=== PATIENT | male | born 1950 | race Hispanic/Latino ===

== ENCOUNTER 2021-01-23 08:30 | Day surgery (SDC) | payer OTHER ==
[2021-01-23] MEDS ORDERED: Ringers Lactate 1,000 ML IV ONE (09:10)
[2021-01-23] MEDS ORDERED: CEFAZOLIN/SWI 1gm 1 GM/10 ML SYR ONE (09:10)
[2021-01-23] MEDS ORDERED: MIDAZOLAM HCL 2 MG/2 ML INJ ONE (09:55)
[2021-01-23] MEDS ORDERED: LIDOCAINE 1% MPF 5 ML VIAL ONE (09:55)
[2021-01-23] MEDS ORDERED: FENTANYL CITR 100 MCG/2 ML ONE (09:55)
[2021-01-23] MEDS ORDERED: propofoL 200 MG/20 ML VIAL IV ONE (09:55)
[2021-01-23] MEDS ORDERED: dexAMETHasone 10 MG/ML VIAL ONE (09:55)
[2021-01-23 12:22] VITALS: TEMP 97; O2SAT 99
[2021-01-23] MEDS ORDERED: HYDROCODONE/APAP 7.5/325 MG TAB ONE (12:46)
[2021-01-23 13:29] VITALS: BP 130/60
--- NOTE | 2021-01-23 14:08 | OP ---
Date of Procedure: 01/23/2021 Surgeon: Corey Ortiz MD Engineering Specialist: SHEELA Haile. Preoperative Diagnosis: Inflamed mass, back. Postoperative Diagnosis: Inflamed mass, back. Procedure: Wide excision of back mass 6 x 3 cm with layered closure. Estimated Blood Loss: Minimal. Specimen: Culture and sensitivity of the cyst contents. Finding: As above. Anesthesia: General. Complications: None. Drains: Quarter-inch Diamond. Disposition: The patient tolerated the procedure in stable condition, taken to Recovery in good gene ral condition. Procedure In Detail: The patient was brought to the OR and placed in supine position. General anest hesia begun. The patient was placed in the right lateral position, prepped and draped in usual steri le fashion. Marcaine 0.5% infiltrated locally. A 15 blade was used to make a 6 x 3 cm incision in t he entire cyst and contents excised. There was fluid inside the cyst. Cultures were done and sent t o Pathology as specimen. Wound irrigated. Bleeding controlled with cautery. Flaps created. Penros e drain quarter-inch placed and secured with a 3-0 nylon and then 0 chromic was used to approximate t he subcutaneous tissue, and 2-0 nylon used to close the skin. Sterile dressing was applied. The pat ient was awakened and taken to Recovery in good general condition. Discharge Note: The patient will go to Day Surgery and home when stable. Disposition: Home. Condition: Stable. Discharge Instructions: Resume home medications and diet. Activity as tolerated. No heavy lifting. May shower in the a.m. Change dressing with dry gauze daily. Bactrim DS 1 tablet p.o. q.12 and Ty lenol No.3 one tablet p.o. q.4 p.r.n. pain. /MODL Voice ID: [id number] Report ID: [id number]
== END 2021-01-23 13:20 | disposition home or self-care (01) ==
LOC: OR 08:30
PROVIDERS: ATTEND Surgery
PROC: 0JB70ZZ Excision of Back Subcutaneous Tissue and Fascia, Open Approach (ICD-10-PCS; principal; 2021-01-23 10:00)
DX: L72.0 Epidermal cyst (principal)
CPT/HCPCS: 11406; 87070; 87205; 88304; 87075; J2704; J2250; J3010; J1100; J0690; J7120; 88305

== ENCOUNTER 2021-03-13 06:31 | Day surgery (SDC) | payer OTHER ==
[2021-03-11 10:40] LABS: Absolute Lymphocytes (CBC) 0.9 K/uL (0.7-4.9); Basophils % 0.7 % (0-1.3); Hematocrit 36.6 % (39.6-49.0); Lymphocytes % 18.4 % (15.3-44.8); MPV 7.5 fL (7.6-11.3); RBC Red Blood Cell Count 4.82 M/uL (4.33-5.43)
[2021-03-11 11:00] LABS: Protime INR 1.04
[2021-03-11 11:04] LABS: Potassium 4.2 mmol/L (3.5-5.1)
--- NOTE | 2021-03-12 08:45 | EKG ---
Test Date: 2021-03-11 Test Time: 09:14:44 Supervisor Publications: TG MEASUREMENT RESULTS: Intervals: Rate: 66 UT: 162 QRSD: 92 QT: 368 QTc: 385 [place]: P: 53 UT: 162 QRS: 71 T: 124 INTERPRETIVE STATEMENTS: Normal sinus rhythm Anterior infarct, age undetermined Abnormal ECG Compared to ECG 05/24/2017 13:23:14 T-wave abnormality no longer present Possible ischemia no longer present Myocardial infarct finding still present Electronically Signed On 03-12-21 08:41:48 CDT by Max Bush
[2021-03-13] MEDS ORDERED: LIDOCAINE 1% 20 ML MDV ONE (07:03)
[2021-03-13] MEDS ORDERED: HEPA 1000U/500MLS 1,000 UNIT/500 ML BAG IV ONE (07:03)
[2021-03-13] MEDS ORDERED: ATROPINE SULF 1 MG/10 ML SYR IV ONE (07:07)
[2021-03-13] MEDS ORDERED: NA CHLORIDE 0.9% 0 ML ONE (07:07)
[2021-03-13] MEDS ORDERED: FENTANYL CITR 100 MCG/2 ML ONE (07:07)
[2021-03-13] MEDS ORDERED: MIDAZOLAM HCL 2 MG/2 ML INJ ONE ×2 (07:07→07:52)
[2021-03-13] MEDS ORDERED: NA CHLORIDE 0.9% 500 ML ONE (07:08)
[2021-03-13 07:11] VITALS: TEMP 97
[2021-03-13 09:10] VITALS: O2SAT 100
[2021-03-13 09:39] VITALS: BP 138/78
--- NOTE | 2021-03-13 12:37 | OP ---
Surgeon: Max Bush MD Candy Spreader Helper: Dr. stas Herzog. Reason For Admission: Selective bilateral carotid angiograms. Indication: Cerebrovascular disease. History Of Present Illness: Mr. Lazo is 70. Has a history of CABG, CAD, hypertension, dyslipid emia with recently found abnormal carotid Doppler, worse on the left than the right, admitted for car otid angiogram. Procedure In Detail: He was brought to the car barn laborer, prepped and draped in routine sterile fashion. Given Versed and fentanyl for sedation. A 6-Vietnamese sheath introduced in the right common femoral ar ivelisse successfully. 10 mL of Xylocaine were used. We used the Seldinger technique. A JR4 catheter w as used initially to cannulate the right common carotid. Angiography there showed a 30% ICA, 70% ext ernal carotid, normal common carotid. I attempted to cannulate the left carotid with JR4, but that w as unsuccessful. I switched to a 3DRC and used a Glidewire to guide the catheter into the left commo n carotid. Angiography there showed 50% left ICA, normal external carotid and common carotid. No co mplications. Blood Loss: 5 mL. Postoperative Diagnosis: Moderate CVD. Medical therapy is planned. I will increase his statin to 40 mg daily. Anesthesia: Total conscious sedation 45 minutes. Angio-Seal was used to close the groin site. The patient will remain at bedrest for 2 hours and he w ill go home and see me in the office in 2 weeks. DMITRI/DOC Voice ID: [id number] Report ID: [id number]
== END 2021-03-13 10:00 | disposition home or self-care (01) ==
LOC: CCL 06:31
DX: I65.23 Occlusion and stenosis of bilateral carotid arteries (principal); I25.10 Atherosclerotic heart disease of native coronary artery without angina pectoris; I10 Essential (primary) hypertension; I34.0 Nonrheumatic mitral (valve) insufficiency; G62.9 Polyneuropathy, unspecified; E78.2 Mixed hyperlipidemia; F41.1 Generalized anxiety disorder; Z95.1 Presence of aortocoronary bypass graft; Z88.2 Allergy status to sulfonamides; Z88.8 Allergy status to other drugs, medicaments and biological substances; Z20.822 Contact with and (suspected) exposure to COVID-19
CPT/HCPCS: 93005; 85025; 80048; 36415; 85610; 85730; 36222; U0003; C1893; C1760; J2250 ×2; J3010; J7040; J1644; J0583

== ENCOUNTER 2025-02-25 14:17 | Emergency (ER) | payer OTHER ==
[2025-02-25] MEDS ORDERED: LIDOCAINE 2% W/EPI 1:200,000 MPF 20 ML VIAL IM ONE (14:29)
[2025-02-25] MEDS ORDERED: LIDOCAINE 1% MPF 5 ML VIAL ONE (14:36)
[2025-02-25] MEDS ORDERED: TDAP (DIPHTH,PERTUSS(ACELL),TET VAC) 0.5 ML VIAL IMVAC ONE (14:37)
--- NOTE | 2025-02-25 15:23 | ER ---
Nurse's Notes [facility] Name: Juan Miguel Lazo Jr Age: 74 yrs Sex: Male : 1950 Arrival Date: 02/25/2025 Time: 14:17 Bed 18 Private MD: Diagnosis: Hand Laceration/ Open wound of hand Presentation: 02/25 14:27 Chief complaint: Patient states: Laceration to R palmar aspect of R hand after falling ss from standing. Pt reports he hit his hand on a corner of a piece of wood. Coronavirus screen: Client denies travel out of the [place] in the last 14 days. Ebola Screen: Patient denies exposure to infectious person. Patient denies travel to an Ebola-affected area in the 21 days before illness onset. Complicating Factors: There are no complicating factors for this patient. Initial Sepsis Screen: Does the patient meet any 2 criteria? No. Patient's initial sepsis screen is negative. Does the patient have a suspected source of infection? No. Patient's initial sepsis screen is negative. Risk Assessment: Do you want to hurt yourself or someone else? Patient reports no desire to harm self or others. Onset of symptoms was February 25, 2025. 14:27 Method Of Arrival: Ambulatory ss 14:27 Acuity: KATIUSKA 3 ss Historical: - Allergies: 14:30 ACETAMINOPHEN; ss 14:30 Heparin; ss - PMHx: 14:30 Hypertension; ss - PSHx: 14:30 neck (en); CABG (neck); ss - Immunization history:: Last tetanus immunization: not immunized. - Infectious Disease History:: Denies. - Social history:: Smoking status: Patient denies any tobacco usage or history of. Screenin:03 [facility] ED Fall Risk Assessment (Adult) History of falling in the last 3 months, ld1 including since admission No falls in past 3 months (0 pts) Confusion or Disorientation No (0 pts) Intoxicated or Sedated No (0 pts) Impaired Gait No (0 pts) Mobility Assist Device Used No (0 pt) Altered Elimination No (0 pt) Score/Fall Risk Level 0 - 2 = Low Risk Oriented to surroundings, Hourly rounding (assess needs \T\ fall precautionary measures) done. Abuse screen: Denies threats or abuse. Denies injuries from another. Nutritional screening: No deficits noted. Tuberculosis screening: No symptoms or risk factors identified. Assessment: 15:03 General: Appears in no apparent distress. comfortable, Behavior is calm, cooperative, ld1 appropriate for age. Pain: Complains of pain in palmar aspect of proximal phalanx of right thumb, heel of right hand, palm of right hand and Right first web space Pain does not radiate. Pain currently is 8 out of 10 on a pain scale. Quality of pain is described as throbbing, Pain began 1 hour ago. Is continuous. Neuro: Level of Consciousness is awake, alert, obeys commands, Oriented to person, place, time, situation. Cardiovascular: Capillary refill < 3 seconds Patient's skin is warm and dry. Respiratory: Airway is patent Respiratory effort is even, unlabored. GI: Abdomen is round non-distended. : No signs and/or symptoms were reported regarding the genitourinary system. EENT: No signs and/or symptoms were reported regarding the EENT system. Derm: No signs and/or symptoms reported regarding the dermatologic system. Musculoskeletal: No signs and/or symptoms reported regarding the musculoskeletal system. Injury Description: Laceration sustained to heel of right hand, palm of right hand and Right first web space is jagged, not bleeding, is bleeding no active bleeding noted. 15:36 Reassessment: Patient appears in no apparent distress at this time. No changes from ld1 previously documented assessment. Patient and/or family updated on plan of care and expected duration. Pain level reassessed. Patient is alert, oriented x 3, equal unlabored respirations, skin warm/dry/pink. Vital Signs: 14:27 BP 152 / 68; Pulse 78; Resp 17; Temp 98.1; Pulse Ox 98% on R/A; Weight 92.99 kg; Height ss 5 ft. 8 in. ; Pain 2/10; 15:03 BP 169 / 60; Pulse 68; Resp 18; Pulse Ox 95% on R/A; ld1 15:36 BP 159 / 65; Pulse 71; Resp 18; Pulse Ox 100% on R/A; ld1 14:27 Body Mass Index 31.17 (92.99 kg, 172.72 cm) 14:27 Pain Scale: Adult ED Course: 14:21 Patient arrived in ED. al6 14:21 Scott To FNP-C is [facility]. dr5 14:22 Phoeinx Lu MD is Attending Physician. dr5 14:30 Triage completed. ss 14:30 Arm band placed on right wrist. ss 14:31 Marlene Lopez, RN is Primary Nurse. ld1 15:03 Patient has correct armband on for positive identification. Placed in gown. Bed in low ld1 position. Call light in reach. Side rails up X2. Pulse ox on. NIBP on. Door closed. Noise minimized. Warm blanket given. 15:03 Assist provider with laceration repair on right hand using sutures. Set up tray. ld1 Performed by Scott COOMBS Patient tolerated well. 15:37 Patient did not have IV access during this emergency room visit. ld1 Administered Medications: 14:42 Drug: Boostrix Tdap IM 0.5 ml IM once; as a single dose Route: IM; Site: left deltoid; ld1 14:50 Follow up: Response: (VIS) Vaccine information sheet provided today. Questions and/or ld1 concerns addressed. VIS edition date: May 30, 2021.; No adverse reaction 14:47 Drug: Lidocaine-Epinephrine Infiltration -1%: (1:100,000) 20 ml 20 ml Infiltration ld1 once; to bedside {Note: Administered by FNP. Rachel} Volume: 20 ml; Route: Infiltration; Medication: 15:03 Vaccine Information Statement (VIS) provided today. Questions and/or concerns ld1 addressed. VIS edition date: February 25, 2025. Outcome: 15:23 Discharge ordered by MD. dr5 15:36 Discharged to home ambulatory, with family, ld1 15:36 Condition: stable 15:36 Discharge instructions given to patient, Instructed on discharge instructions, follow up and referral plans. medication usage, Demonstrated understanding of instructions, follow-up care, medications, Prescriptions given X 1, 15:37 Patient left the ED. ld1 Signatures: Noemy Cadet RN RN ss Sims, Lauren, RN RN ld1 Scott To FNP-C FNP-Cdr5 Julieta Romano6 Corrections: (The following items were deleted from the chart) 15:06 15:03 VIS not applicable for this client. ld1 ld1
--- NOTE | 2025-02-25 15:23 | EDPHYS ---
Physician Documentation [facility] Name: Juan Miguel Lazo Jr Age: 74 yrs Sex: Male : 1950 Arrival Date: 02/25/2025 Time: 14:17 Bed 18 Private MD: ED Physician Phoenix Lu HPI: 02/25 16:52 This 74 yrs old Male presents to ER via Ambulatory with complaints of dr5 Laceration To right Hand. 16:52 The patient has a laceration occurred at home. Onset: The symptoms/episode dr5 began/occurred acutely. Patient is a 74-year-old male who was at home, tripped and fell, and landed on right hand. Patient reports that there was a piece of wood at the by the desk that lacerated his right hand. Patient denies numbness or tingling in fingers, hand, or decrease in range of motion.. Historical: - Allergies: 14:30 ACETAMINOPHEN; ss 14:30 Heparin; ss - PMHx: 14:30 Hypertension; ss - PSHx: 14:30 neck (en); CABG (neck); ss - Immunization history:: Last tetanus immunization: not immunized. - Infectious Disease History:: Denies. - Social history:: Smoking status: Patient denies any tobacco usage or history of. ROS: 16:52 Constitutional: as per hpi dr5 Exam: 16:52 Constitutional: This is a well developed, well nourished patient who is awake, alert, dr5 and in no acute distress. Head/Face: Normocephalic, atraumatic. Eyes: Pupils equal round and reactive to light, extra-ocular motions intact. Lids and lashes normal. Conjunctiva and sclera are non-icteric and not injected. Cornea within normal limits. Periorbital areas with no swelling, redness, or edema. Neck: Trachea midline, no thyromegaly or masses palpated, and no cervical lymphadenopathy. Supple, full range of motion without nuchal rigidity, or vertebral point tenderness. No Meningismus. Chest/axilla: Normal chest wall appearance and motion. Nontender with no deformity. No lesions are appreciated. Cardiovascular: Regular rate and rhythm with a normal S1 and S2. Normal PMI, no JVD. No pulse deficits. Respiratory: Lungs have equal breath sounds bilaterally, clear to auscultation. No rales, rhonchi or wheezes noted. No increased work of breathing, no retractions or nasal flaring. Back: No spinal tenderness. No costovertebral tenderness. Full range of motion. MS/ Extremity: Pulses equal, no cyanosis. Neurovascular intact. Full, normal range of motion. Neuro: Awake and alert, GCS 15, oriented to person, place, time, and situation. Cranial nerves II-XII grossly intact. Motor strength 5/5 in all extremities. Sensory grossly intact. Cerebellar exam normal. Normal gait. 16:52 Musculoskeletal/extremity: Extremities: grossly normal except: noted in the outer aspect of right palm: laceration, ROM: no acute changes, intact in all extremities, Circulation is intact in all extremities. Sensation intact. 16:52 Skin: injury, laceration(s), the wound is approximately 6 cm(s), with a depth of 1 cm(s), of the outer aspect of right palm, Vital Signs: 14:27 BP 152 / 68; Pulse 78; Resp 17; Temp 98.1; Pulse Ox 98% on R/A; Weight 92.99 kg; Height ss 5 ft. 8 in. ; Pain 2/10; 15:03 BP 169 / 60; Pulse 68; Resp 18; Pulse Ox 95% on R/A; ld1 15:36 BP 159 / 65; Pulse 71; Resp 18; Pulse Ox 100% on R/A; ld1 14:27 Body Mass Index 31.17 (92.99 kg, 172.72 cm) ss 14:27 Pain Scale: Adult ss Laceration: 16:52 Wound Repair of 6cm ( 2.4in ) subcutaneous laceration to outer aspect of right palm. dr5 Irregularly shaped.. Skin/tissue flap noted.. Distal neuro/vascular/tendon intact. Anesthesia: Local anesthetic administered with 4 mls of 1% lidocaine. Wound prep: Moderate cleansing by me, Wound irrigation by me, Copious irrigation. Skin closed with 16 4-0 Prolene using simple sutures and sterile technique. Dressed with non-adherent dressing. Patient tolerated well. MDM: 14:22 Medical Screening Exam initiated dr5 16:52 Differential diagnosis: superficial laceration, tendon injury, vascular injury. Data dr5 reviewed: vital signs, nurses notes. I considered the following discharge prescriptions or medication management in the emergency department Medications were administered in the Emergency Department. See DEC. Care significantly affected by the following chronic conditions: Hypertension. Care significantly affected by the following Social Determinants of Health: Poor access to healthcare and/or lack of insurance, Poor access to transportation, Problems related to employment. Counseling: I had a detailed discussion with the patient and/or guardian regarding the historical points, exam findings, and any diagnostic results supporting the discharge/admit diagnosis, the presence of at least one elevated blood pressure reading (>120/80) during this emergency department visit, the need for outpatient follow up, for definitive care, a family practitioner, to return to the emergency department if symptoms worsen or persist or if there are any questions or concerns that arise at home. Medication response: Lidocaine. Response to treatment: the patient's symptoms have resolved after treatment. ED course: 16 stitches placed with well-approximated wound. Laceration was cut in a V manner. I originally placed horizontal mattress at point of V to hold wound together. At end of laceration repair, that was removed, and 2 simple interrupted sutures were placed for better wound approximation. Keflex prescribed. Recommended patient have sutures removed in 10 to 14 days. All questions answered. Tetanus was updated in ER today. Strict ER precautions given.. 02/25 14:26 Order name: Dressing - Wound; Complete Time: 14:50 dr5 02/25 14:26 Order name: Gloves, Sterile; Complete Time: 14:50 dr5 02/25 14:26 Order name: Prolene, Sutures; Complete Time: 14:50 dr5 02/25 14:26 Order name: Setup Suture Tray; Complete Time: 14:50 dr5 Administered Medications: 14:42 Drug: Boostrix Tdap IM 0.5 ml IM once; as a single dose Route: IM; Site: left deltoid; ld1 14:50 Follow up: Response: (VIS) Vaccine information sheet provided today. Questions and/or ld1 concerns addressed. VIS edition date: May 30, 2021.; No adverse reaction 14:47 Drug: Lidocaine-Epinephrine Infiltration -1%: (1:100,000) 20 ml 20 ml Infiltration ld1 once; to bedside {Note: Administered by RUDDY Ramos.} Volume: 20 ml; Route: Infiltration; Disposition: 22:19 Co-signature as Attending Physician, Phoenix Lu MD I agree with the assessment and marlee plan of care. Disposition Summary: 02/25/25 15:23 Discharge Ordered Notes: Location: Home dr5 Condition: Stable dr5 Diagnosis - Hand Laceration/ Open wound of hand dr5 Followup: dr5 - With: Emergency Department - When: As needed - Reason: Worsening of condition Followup: dr5 - With: Private Physician - When: 10-14 days - Reason: Staple/Suture removal Discharge Instructions: - Discharge Summary Sheet dr5 - Laceration Care, Adult, [id number] dr5 Forms: - Medication Reconciliation Form dr5 - Antibiotic Education dr5 - Patient Portal Instructions dr5 - Leadership Thank You Letter dr5 Prescriptions: - Cephalexin 500 mg Oral Capsule - take 1 capsule ORAL route every 12 hours for 10 days; 20 capsule; Refills: 0, dr5 Product Selection Permitted Signatures: Phoenix Lu MD MD cha Blanchard, Shelby, RN RN ss Marlene Lopez RN RN ld1 Scott To, WOOD TREATING INSPECTOR-C WOOD TREATING INSPECTOR-Cdr5
[2025-02-25 16:02] VITALS: TEMP 98.1
[2025-02-25 16:06] VITALS: BP 159/65; O2SAT 100
== END 2025-02-25 15:37 | disposition home or self-care (01) ==
LOC: ER 14:17
DX: S61.411A Laceration without foreign body of right hand, initial encounter (principal); W01.0XXA Fall on same level from slipping, tripping and stumbling without subsequent striking against object, initial encounter; Y92.009 Unspecified place in unspecified non-institutional (private) residence as the place of occurrence of the external cause; Z23 Encounter for immunization
CPT/HCPCS: 90715; 96372; 99284; 12042; J2003

== ENCOUNTER 2025-08-06 16:26 | Inpatient (IN) | payer OTHER ==
[2025-08-06 18:22] LABS: Absolute Lymphocytes (CBC) 0.4 K/uL (0.7-4.9); Hematocrit 44.4 % (39.6-49.0); Hemoglobin 14.6 g/dL (13.6-17.9); MCH 28.7 pg (27.0-35.0); MCHC 32.8 g/dL (32.0-36.0); MCV 87.3 fL (80-100); MPV 6.9 fL (7.6-11.3); Nucleated RBC Absolute Count 0.0 (0-0); Nucleated Red Blood Cells % 0.1 % (0-0); RBC Red Blood Cell Count 5.08 M/uL (4.33-5.43); White Blood Count 4.90 thou/uL (4.3-10.9)
[2025-08-06 18:38] LABS: ALT/SGPT 39.0 U/L (16-61); AST/SGOT 29.0 U/L (15-37); Albumin 3.7 g/dL (3.4-5.0); Albumin/Globulin Ratio 1.0 (1.1-1.8); Alkaline Phosphatase 64.0 U/L (45-117); Anion Gap 9.0 mEq/L (5.0-15.0); BUN Blood Urea Nitrogen 22.0 mg/dL (7-18); Globulin 3.8 g/dL (2.3-3.5); Glucose Level 146.0 mg/dL (74-106); Lipase 20.0 U/L (13-75); Potassium 4.0 mEq/L (3.5-5.1)
[2025-08-06] MEDS ORDERED: ONDANSETRON 4 MG/2 ML VIAL ONE (18:38)
[2025-08-06] MEDS ORDERED: MORPHINE 4 MG/ML SYR ONE (18:38)
[2025-08-06] MEDS ORDERED: NA CHLORIDE 0.9% 1,000 ML ONE ×2 (18:39→23:12)
--- NOTE | 2025-08-06 20:08 | RAD REPORT ---
EXAMINATION: CT ABDOMEN AND PELVIS WITH CONTRAST CLINICAL INDICATION: ABD PAIN TECHNIQUE: CT abdomen and pelvis was performed, after the administration of IV contrast, [facility]. Axial, sagittal and coronal reconstructions were obtained. One or more of the following dose reduction techniques were used: Automated exposure control, adjustment of the mA and k V according to patient size, and iterative reconstruction. Unless otherwise specified, incidental findings do not require dedicated imaging follow-up. COMPARISON: 03/08/2025 FINDINGS: LOWER CHEST: The visualized lung bases are clear. Fluid is present in the distal esophagus which appe ars patulous. Small hiatal hernia. LIVER: Mild fatty liver is present numerous low-density lesions likely small cysts. Cholecystectomy c lips. SPLEEN: Normal size. No focal lesion. PANCREAS: No mass, ductal dilation, or wilma-pancreatic fluid. ADRENALS: Normal; no mass. KIDNEYS: Normal size and contour. No hydronephrosis. GASTROINTESTINAL TRACT: There is severe distention of the cecum measuring up to 9.5 cm as well as the descending colon measuring up to 6 cm and transverse colon measuring up to 6 cm. The descending colon is more normal in size and the sigmoid colon is generally collapsed diverticula. APPENDIX: Appendix surgically absent. LYMPH NODES: No lymphadenopathy. MUSCULOSKELETAL: Mild multilevel spinal degenerative changes. Mild lower lumbar degenerative changes. ADDITIONAL FINDINGS: Bilateral fat-containing inguinal hernias, larger on the left. IMPRESSION: Severe distention of the cecum up to 9-10 cm, with less severe distention of the ascending colon and to lesser extent transverse colon as described. The findings may be related to internal hernia or a cecal volvulus. No pneumatosis is seen. There is evidence of previous surgical intervention in this r egion of the abdomen. Consider follow-up surgical assessment. Mild sigmoid diverticulosis coli.
--- NOTE | 2025-08-06 20:48 | EDPHYS ---
Physician Documentation [facility] Name: Juan Miguel Lazo Jr Age: 75 yrs Sex: Male : 1950 Arrival Date: 08/06/2025 Time: 16:26 Bed 23 Private MD: ED Physician HPI: 08/06 16:37 This 75 yrs old Male presents to ER via Ambulatory with complaints of sb4 Abdominal Pain. 16:37 The patient presents with abdominal pain that is diffuse. Onset: The symptoms/episode sb4 began/occurred 2 day(s) ago. The symptoms do not radiate. Associated signs and symptoms: Pertinent positives: nausea, vomiting, and diarrhea. Patient reports abdominal pain, nausea, vomiting, diarrhea, and abdominal distention for 2 to 3 days now. States that he did have some dark stool this morning but has been taking Pepto-Bismol. Abdominal surgeries include appendectomy and cholecystectomy. Denies any history of bowel obstructions, diverticulitis. reports a subjective low-grade fever. Historical: - Allergies: 16:37 Heparin; me1 - PMHx: 16:37 Hypertension; Hypercholesterolemia; Myocardial infarction; me1 - PSHx: 16:37 CABG (Unknown); neck; me1 - Immunization history:: Adult Immunizations up to date. - Infectious Disease History:: Denies. - Social history:: Smoking status: Patient denies any tobacco usage or history of. ROS: 16:37 Constitutional: Negative for fever, chills, and weight loss, sb4 16:37 Abdomen/GI: Positive for abdominal pain, nausea, vomiting, and diarrhea, abdominal distension, 16:37 All other systems are negative, Exam: 16:37 Head/Face: Normocephalic, atraumatic. Eyes: Extra-ocular motions intact. Periorbital sb4 areas with no swelling, redness, or edema. ENT: Mucous membranes moist. Cardiovascular: Regular rate and rhythm with a normal S1 and S2. Respiratory: No increased work of breathing, no retractions or nasal flaring. Skin: Warm, dry with normal turgor. Normal color with no rashes, no lesions, and no evidence of cellulitis. 16:37 Constitutional: The patient appears in no acute distress, alert, awake, 16:37 Abdomen/GI: Inspection: distension, that is mild, in the right upper quadrant, left upper quadrant, right lower quadrant and left lower quadrant, Bowel sounds: normal, Vital Signs: 16:35 BP 125 / 62; Pulse 86; Resp 18; Temp 98.4; Pulse Ox 98% ; Weight 90.72 kg; Height 5 ft. me1 8 in. ; Pain 9/10; 18:17 BP 150 / 65; Pulse 77; Resp 16; Pulse Ox 99% on R/A; jb4 20:00 BP 160 / 73; Pulse 88; Resp 16; Pulse Ox 97% on R/A; jb4 22:15 BP 143 / 67; Pulse 88; Resp 16; Pulse Ox 97% on R/A; jb4 23:00 BP 161 / 80; Pulse 84; Resp 16; Pulse Ox 100% on R/A; jb4 08/07 00:30 BP 159 / 73; Pulse 82; Resp 16; Pulse Ox 98% on R/A; jb4 08/06 16:35 Body Mass Index 30.41 (90.72 kg, 172.72 cm) me1 08/06 16:35 Pain Scale: Adult me1 MDM: 08/06 16:31 Medical Screening Exam initiated sb4 16:44 Differential diagnosis: bowel obstruction, diverticulitis, non-specific abd pain, sb4 Peptic Ulcer Disease. 19:32 Independent interpretation of the following test(s) in the Emergency Department CT sb4 Scan: My interpretation is CT abdomen pelvis images suggestive of small bowel obstruction with significantly dilated bowel with fluid levels. Historians other than the Patient: Spouse/Significant Other: . 08/07 00:36 Data reviewed: vital signs, nurses notes, lab test result(s), radiologic studies, CT sb4 scan, and as a result, I will admit patient. Consideration of Admission/Observation Patient was admitted/placed on observation. Management of patient was discussed with the following: Speech Language Specialist: Dr. Reza, requests AFP, CEA, and lactate and agrees to consult. radiologist -Dr. Torrez confirmed that cysts on liver are too small to characterize as mets or not but most likely are not. 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 Care significantly affected by the following chronic conditions: Hypertension, Obesity. Counseling: I had a detailed discussion with the patient and/or guardian regarding the historical points, exam findings, and any diagnostic results supporting the discharge/admit diagnosis, the presence of at least one elevated blood pressure reading (>120/80) during this emergency department visit, lab results, radiology results, the need for further work-up and treatment in the hospital. 08/06 16:36 Order name: CBC with Diff; Complete Time: 18:23 sb4 08/06 16:36 Order name: CMP; Complete Time: 18:46 sb4 08/06 16:36 Order name: Lipase; Complete Time: 18:46 sb4 08/06 20:14 Order name: Lactate w/ 2H reflex if indic.; Complete Time: 21:12 sb4 08/06 20:20 Order name: Alpha Fetoprotein-Tumor Marker EDMS 08/06 20:20 Order name: Carcinoembryonic Antigen; Complete Time: 21:12 EDMS 08/07 01:34 Order name: CBC with Automated Diff EDMS 08/07 01:34 Order name: CBC with Automated Diff EDMS 08/07 01:34 Order name: CBC with Automated Diff EDMS 08/07 01:34 Order name: Comprehensive Metabolic Panel EDMS 08/07 01:34 Order name: Comprehensive Metabolic Panel EDMS 08/07 01:34 Order name: Comprehensive Metabolic Panel EDMS 08/07 01:34 Order name: Magnesium EDMS 08/07 01:34 Order name: Magnesium EDMS 08/07 01:34 Order name: Magnesium EDMS 08/06 16:36 Order name: CT Abd/Pelvis - IV Contrast Only; Complete Time: 20:09 sb4 08/07 01:57 Order name: Upper GI W/KUB EDMS 08/07 01:57 Order name: Upper GI W/KUB EDMS 08/06 16:36 Order name: IV Saline Lock; Complete Time: 18:20 sb4 08/06 16:36 Order name: Labs collected and sent; Complete Time: 18:20 sb4 08/06 19:28 Order name: NPO; Complete Time: 19:34 sb4 Administered Medications: 08/06 18:44 Drug: Ondansetron IVP 4 mg IVP once; over 2 minutes Route: IVP; Site: right antecubital;jb4 19:00 Follow up: Response: No adverse reaction; Marked relief of symptoms jb4 18:44 Drug: morphine IVP or IV 4 mg IVP once over 4 mins Route: IVP; Infused Over: 4 mins; jb4 Site: right antecubital; 19:00 Follow up: Response: No adverse reaction; Marked relief of symptoms; Pain is decreased jb4 18:44 Drug: NS 0.9% IV 1000 ml IV at 1 bolus Per protocol; to be given as a bolus over 60 jb4 minutes Route: IV; Rate: 1 bolus; Site: right antecubital; 19:44 Follow up: Response: No adverse reaction; Marked relief of symptoms; Pain is decreased; jb4 IV Status: Completed infusion; IV Intake: 1000ml 23:18 Drug: NS 0.9% IV 1000 ml IV at 1 bolus Per protocol; to be given as a bolus over 60 jb4 minutes Route: IV; Rate: 1 bolus; Site: right antecubital; 23:32 Follow up: IV Status: Infusion continued upon admission jb4 23:19 Drug: Famotidine IVP 20 mg IVP once; dilute with 10 mL 0.9% NaCl; give over 2 minutes jb4 Route: IVP; Site: right antecubital; 23:32 Follow up: Response: No adverse reaction jb4 Disposition: 08/07 10:27 Co-signature as Attending Physician, Michael Dey MD I reviewed the patient's care rn provided by the Advanced Practice Provider and agree with the diagnosis and treatment plan. Disposition Summary: 08/06/25 20:48 Hospitalization Ordered Notes: Hospitalization Status: Inpatient Admission sb4 Provider: Michael Dey sbLisandra Condition: Stable sb4 Problem: new sb4 Symptoms: are unchanged sb4 Bed/Room Type: Standard sb4 Location: Telemetry/MedSurg (Inpatient)(08/07/25 07:27) bd Room Assignment: 402(08/07/25 07:27) bd Diagnosis - Acute cecal volvulus sb4 Forms: - Medication Reconciliation Form sb4 - SBAR form sb4 - Leadership Thank You Letter sb4 Signatures: Dispatcher [employer] Sabine Lakhani Roman, MD MD rn Bryson, James RN KIRBY jb4 Olimpia Carbajal RN RN vc1 Mayte Rodriguez PA-C PAMal sb4 Lia San RN RN me1 Corrections: (The following items were deleted from the chart) 08/06 16:38 16:37 Allergies: ACETAMINOPHEN; me1 me1 20:14 20:14 LACTATE+C.LAB.BRZ ordered. EDMS EDMS 20:48 Telemetry/MedSurg (Inpatient) sb4 vc1 20:48 sb4 vc1 08/07 07:27 08/06 21:34 [facility] ER HOLD vc1 bd 08/07 07:08/06 21:34 ERHOLD- vc1 bd
--- NOTE | 2025-08-06 20:48 | ER ---
Nurse's Notes [facility] Name: Juan Miguel Lazo Jr Age: 75 yrs Sex: Male : 1950 Arrival Date: 08/06/2025 Time: 16:26 Bed 23 Private MD: Diagnosis: Acute cecal volvulus Presentation: 08/06 16:35 Chief complaint: Patient states: intermittent abdominal pain x 2 days with black stool. me1 Has been taking pepto. n/v/d as well. Pain level 9/10 at times. Coronavirus screen: Vaccine status: Patient reports receiving the 2nd dose of the covid vaccine. Ebola Screen: No symptoms or risks identified at this time. Initial Sepsis Screen: Does the patient meet any 2 criteria? No. Patient's initial sepsis screen is negative. Does the patient have a suspected source of infection? No. Patient's initial sepsis screen is negative. Risk Assessment: Do you want to hurt yourself or someone else? Patient reports no desire to harm self or others. Onset of symptoms was August 04, 2025. 16:35 Method Of Arrival: Amb[place] [facility] [place] 16:35 Acuity: KATIUSKA 3 me1 Historical: - Allergies: 16:37 Heparin; me1 - PMHx: 16:37 Hypertension; Hypercholesterolemia; Myocardial infarction; me1 - PSHx: 16:37 CABG (Unknown); neck; me1 - Immunization history:: Adult Immunizations up to date. - Infectious Disease History:: Denies. - Social history:: Smoking status: Patient denies any tobacco usage or history of. Screenin:15 [facility] ED Fall Risk Assessment (Adult) History of falling in the last 3 months, jb4 including since admission No falls in past 3 months (0 pts) Confusion or Disorientation No (0 pts) Intoxicated or Sedated No (0 pts) Impaired Gait No (0 pts) Mobility Assist Device Used No (0 pt) Altered Elimination No (0 pt) Score/Fall Risk Level 0 - 2 = Low Risk Oriented to surroundings, Maintained a safe environment. Abuse screen: Denies threats or abuse. Nutritional screening: No deficits noted. Tuberculosis screening: No symptoms or risk factors identified. Assessment: 17:30 General: Appears in no apparent distress. comfortable, Behavior is calm, cooperative, jb4 appropriate for age. Pain: Complains of pain in abdomen Pain does not radiate. Pain currently is 9 out of 10 on a pain scale. Neuro: Level of Consciousness is awake, alert, obeys commands, Oriented to person, place, time, situation. Cardiovascular: Patient's skin is warm and dry. Respiratory: Airway is patent Respiratory effort is even, unlabored, Respiratory pattern is regular, symmetrical. GI: Abdomen is round non-distended, Reports lower abdominal pain, upper abdominal pain. Derm: Skin is intact, Skin is pink, warm \T\ dry. Musculoskeletal: Circulation, motion, and sensation intact. Range of motion: intact in all extremities. 18:45 Reassessment: Patient appears in no apparent distress at this time. Patient and/or jb4 family updated on plan of care and expected duration. Pain level reassessed. Patient is alert, oriented x 3, equal unlabored respirations, skin warm/dry/pink. 20:00 Reassessment: Patient appears in no apparent distress at this time. Patient and/or jb4 family updated on plan of care and expected duration. Pain level reassessed. Patient is alert, oriented x 3, equal unlabored respirations, skin warm/dry/pink. 21:00 Reassessment: Patient appears in no apparent distress at this time. Patient and/or jb4 family updated on plan of care and expected duration. Pain level reassessed. Patient is alert, oriented x 3, equal unlabored respirations, skin warm/dry/pink. 22:00 Reassessment: Patient appears in no apparent distress at this time. Patient and/or jb4 family updated on plan of care and expected duration. Pain level reassessed. Patient is alert, oriented x 3, equal unlabored respirations, skin warm/dry/pink. 23:00 Reassessment: Patient appears in no apparent distress at this time. Patient and/or jb4 family updated on plan of care and expected duration. Pain level reassessed. Patient is alert, oriented x 3, equal unlabored respirations, skin warm/dry/pink. 08/07 00:30 Reassessment: Patient appears in no apparent distress at this time. Patient and/or jb4 family updated on plan of care and expected duration. Pain level reassessed. Patient is alert, oriented x 3, equal unlabored respirations, skin warm/dry/pink. Vital Signs: 08/06 16:35 BP 125 / 62; Pulse 86; Resp 18; Temp 98.4; Pulse Ox 98% ; Weight 90.72 kg; Height 5 ft. me1 8 in. ; Pain 9/10; 18:17 BP 150 / 65; Pulse 77; Resp 16; Pulse Ox 99% on R/A; jb4 20:00 BP 160 / 73; Pulse 88; Resp 16; Pulse Ox 97% on R/A; jb4 22:15 BP 143 / 67; Pulse 88; Resp 16; Pulse Ox 97% on R/A; jb4 23:00 BP 161 / 80; Pulse 84; Resp 16; Pulse Ox 100% on R/A; jb4 08/07 00:30 BP 159 / 73; Pulse 82; Resp 16; Pulse Ox 98% on R/A; jb4 08/06 16:35 Body Mass Index 30.41 (90.72 kg, 172.72 cm) me1 08/06 16:35 Pain Scale: Adult [facility] [place] ED Course: 08/06 16:30 Patient arrived in ED. cj3 16:31 Mayte Rodriguez PA-C is PHCP. sb4 16:31 Michael Dey MD is Attending Physician. sb4 16:37 Triage completed. me1 16:37 Arm band placed on Patient placed in waiting room. me1 16:47 Radiology exam delayed due to lab results not completed at this time. (BUN/Creatinine) nj IV insertion attempt and/or patient not having appropriate IV at this time. 18:15 Inserted saline lock: 18 gauge in right antecubital area, using aseptic technique. jb4 Blood collected. 18:20 CBC with Diff Sent. jb4 18:20 CMP Sent. jb4 18:20 Lipase Sent. jb4 18:57 CT Abd/Pelvis - IV Contrast Only In Process Unspecified. EDMS 19:19 Sourav Madera, RN is Primary Nurse. jb4 20:47 Michael Dey MD is Hospitalizing Provider. sb4 22:15 Patient has correct armband on for positive identification. Bed in low position. Call jb4 light in reach. Side rails up X 1. Provided Education on: plan of care. 22:15 No provider procedures requiring assistance completed. Patient admitted, IV remains in jb4 place. 08/07 04:16 Attending Physician role handed off by Michael Dey MD br2 04:16 Primary Nurse role handed off by Sourav Madera RN br2 04:16 PHCP role handed off by Mayte Rodriguez PA-C br2 Administered Medications: 08/06 18:44 Drug: Ondansetron IVP 4 mg IVP once; over 2 minutes Route: IVP; Site: right antecubital;jb4 19:00 Follow up: Response: No adverse reaction; Marked relief of symptoms jb4 18:44 Drug: morphine IVP or IV 4 mg IVP once over 4 mins Route: IVP; Infused Over: 4 mins; jb4 Site: right antecubital; 19:00 Follow up: Response: No adverse reaction; Marked relief of symptoms; Pain is decreased jb4 18:44 Drug: NS 0.9% IV 1000 ml IV at 1 bolus Per protocol; to be given as a bolus over 60 jb4 minutes Route: IV; Rate: 1 bolus; Site: right antecubital; 19:44 Follow up: Response: No adverse reaction; Marked relief of symptoms; Pain is decreased; jb4 IV Status: Completed infusion; IV Intake: 1000ml 23:18 Drug: NS 0.9% IV 1000 ml IV at 1 bolus Per protocol; to be given as a bolus over 60 jb4 minutes Route: IV; Rate: 1 bolus; Site: right antecubital; 23:32 Follow up: IV Status: Infusion continued upon admission jb4 23:19 Drug: Famotidine IVP 20 mg IVP once; dilute with 10 mL 0.9% NaCl; give over 2 minutes jb4 Route: IVP; Site: right antecubital; 23:32 Follow up: Response: No adverse reaction jb4 Medication: 22:15 VIS not applicable for this client. jb4 Intake: 19:44 IV: 1000ml; Total: 1000ml. jb4 Outcome: 18:15 Admitted to ER Hold. Please see [facility] for further documentation. jb4 18:15 Condition: stable 18:15 Discharge instructions given to patient, Instructed on the need for admit, Demonstrated understanding of instructions, 20:48 Decision to Hospitalize by Provider. sb4 08/07 04:15 Patient left the ED. br2 08:39 Admitted to Med/surg via wheelchair, room 402, db 08:39 Patient left the ED. db Signatures: Dispatcher [employer] EDMS Sourav Madera RN RN jb4 Jacob Pascal Danielle, RN RN db Mayte Rodriguez PARachellC PA-C sb4 Lia San, KIRBY RN me1 Bernie Nolasco RN RN br2 Gi Young cj3 Corrections: (The following items were deleted from the chart) 08/06 16:38 16:37 Allergies: ACETAMINOPHEN; me1 me1 08/07 04:17 04:14 BP 168 / 53; Pulse 57bpm; Resp 18bpm; Pulse Ox 96%; br2 br2
[2025-08-06] MEDS ORDERED: FAMOTIDINE 20 MG/2 ML VIAL IV ONE (23:12)
[2025-08-07] MEDS ORDERED: MORPHINE 4 MG/ML SYR IV PRN (01:25)
[2025-08-07] MEDS ORDERED: ONDANSETRON 4 MG/2 ML VIAL IV PRN (01:30)
[2025-08-07] MEDS: D5 0.45 NS 1,000 ML IV SCH (02:00)
[2025-08-07] MEDS ORDERED: D5 0.45 NS 1,000 ML IV ONE (03:40)
[2025-08-07 04:29] VITALS: BMI 30.4
--- NOTE | 2025-08-07 05:30 | P.HP ---
Certification for Inpatient Patient admitted to: Inpatient With expected LOS: >2 Midnights Patient will require the following post-hospital care: None Practitioner: I am a practitioner with admitting privileges, knowledge of patient current condition, hospital course, and medical plan of care. Services: Services provided to patient in accordance with Admission requirements found in Title 42 Section 412.3 of the Code of Federal Regulations Patient History Date of Service: 08/07/25 Reason for admission: Abdomen pain, internal hernia versus cecal volvulus. History of Present Illness: Patient is a pleasant 75-year-old male with past medical history of essential hypertension, hypercholesteremia, myocardial infarction, remote CABG triple bypass, who presents to the ER today complaining of worsening diffuse abdominal pain with associated nausea and vomiting nonbilious and nonbloody content. Patient states he started having abdominal pain on Wednesday evening with associated diarrhea, nausea and vomiting. Patient states on Wednesday he took some Pepto-Bismol, states he felt much better after taking the Pepto-Bismol, states thereafter he ate some hamburger and suddenly the pain returned. Describes the pain as intermittent,and sharp pain, states initial pain intensity prior to arrival to ER was 9/10. Dr. Reza consulted by ER provider, requested patient n.p.o., and KUB in AM. On admission assessment, patient awake alert oriented x 3, denies of any nausea or vomiting at this time, endorses abdominal pain, states much better compared to when he arrived to ER after taking some pain medication. Patient abdomen soft, bowel sounds present all 4 quadrants. Course in ER. (1) CT abdomen and pelvis with contrast. Impression: Severe distention of the cecum up to 9-10 cm, with less severe distention of the ascending colon and to lesser extent transverse colon. The findings may be related to internal hernia or a cecal volvulus. No pneumatosis is seen. There is evidence of previous surgical intervention in this region of the abdomen. Consider follow-up surgical assessment. Allergies Sulfa (Sulfonamide Antibiotics) Allergy (Verified 04/20/25 10:19) Hives warfarin Allergy (Verified 04/20/25 10:19) Aggitation Heparin Allergy (Uncoded 04/20/25 10:19) aggitation Home Medications: Amitriptyline HCl 50 mg PO BID 01/23/21 Aspirin 81 mg PO DAILY 01/23/21 Atorvastatin Calcium 40 mg PO BEDTIME 01/23/21 Losartan Potassium 100 mg PO DAILY 01/23/21 Pantoprazole [Protonix Tab*] 40 mg PO DAILY 01/23/21 Amlodipine [Norvasc*] 2.5 mg PO DAILY 03/08/25 Aspirin [Aspirin EC] 81 mg PO DAILY 03/08/25 Ubiquinol [Qunol Mickey Coq10] 1 mg PO DAILY 03/08/25 - Past Medical/Surgical History Has patient received pneumonia vaccine in the past: No Diabetic: No -: Essential hypertension. -: Hypercholesteremia. -: Myocardial infarction -: Left elbow surgery -: cyst removed from lower back 02/23/14 -: triple bipass 01/2017 - Family History Mother -: Hypertension, Stroke Brother Notes: PT STATES "HEALTHY SIBLINGS" - Social History Smoking Status: Former smoker Alcohol use: Yes CD- Drugs: No Caffeine use: Yes Place of Residence: Home Review of Systems 10-point ROS is otherwise unremarkable Gastrointestinal: Nausea, Vomiting, Abdominal Pain Physical Examination - Vital Signs Temperature: 98.4 F Blood Pressure: 114/77 Pulse: 81 Respirations: 18 Pulse Ox (%): 97 - Physical Exam General: Alert, In no apparent distress, Oriented x3, Cooperative HEENT: Atraumatic, Normocephalic, PERRLA, Mucous membr. moist/pink Neck: Supple, 2+ carotid pulse no bruit, JVD not distended, No Thyromegaly, No LAD, Without JVD or thyroid abnormality Respiratory: Clear to auscultation bilaterally, Normal air movement Cardiovascular: No edema, Normal pulses, Regular rate/rhythm, Normal S1 S2, No gallops, No rubs, No murmurs Capillary refill: <2 Seconds Gastrointestinal: No masses, No rebound, No guarding, Distended (Patient states slightly distended), Tenderness Musculoskeletal: No clubbing, No swelling, No contractures, No erythema, No tenderness, No warmth Integumentary: No rashes, No breakdown, No significant lesion, No tenderness/swelling, No erythema, No warmth, No cyanosis Neurological: Normal gait, Normal speech, Normal strength at 5/5 x4 extr, Normal tone, Sensation intact, Cranial nerves 3-12 intact, Normal reflexes 2+, Normal affect Lymphatics: No axilla or inguinal lymphadenopathy - Studies Laboratory Data (last 24 hrs) 10/13/25 10/13/25 18:17 18:17 WBC 4.90 Hgb 14.6 Hct 44.4 Plt Count 209 Sodium 134 L Potassium 4.0 BUN 22 H Creatinine 1.24 Glucose 146 H Total Bilirubin 0.6 AST 29 ALT 39 Alkaline Phosphatase 64 Lipase 20 Male Exam - Male Exam Inguinal exam: No hernias Assessment and Plan - Plan Patient is a 75-year-old male who reports to ER complaining of severe abdominal pain with associated nausea and vomiting nonbilious and nonbloody content. Patient admitted inpatient with diagnosis of abdominal pain, internal hernia versus cecal volvulus. (1)Abdominal pain, internal hernia versus cecal volvulus. -Consult Dr. Reza. -NPO. -Morphine 4 mg as needed every 4 hours IV. -IV D5 half NS at 75 cc/ hr. -Zofran 4 mg IV as needed every 6 hours. -Cipro 20 mg IV every 12 hours. -Flagyl 250 mg IV every 8 hours. -Order KUB in the morning. (2) DVT prophylaxis. - SCD at this time in case patient is taken to surgery in a.m. (3)Patient home medications to be resumed after reconciled. (4)Explained the entire treatment plan to the patient, solicited questions answered and voiced understanding. Discharge Plan: Home Plan to discharge in: Greater than 2 days - Advance Directives Does patient have a Living Will: No Does patient have a Durable POA for Healthcare: No - Code Status/Comfort Care Code Status Assessed: Yes Code Status: Full Code Critical Care: No Time Spent Managing Pts Care (In Minutes): 55
[2025-08-07] MEDS ORDERED: FLU (Fluarix) 25-26 (6MOS UP)/PF 45 MCG/0.5 ML Syringe IM ONE (08:45)
[2025-08-07] MEDS ORDERED: PNEUMOCOCCAL VACCINE 0.5 ML IMVAC ONE (09:00)
[2025-08-07] MEDS: METRONIDAZOLE 250mg IVPB 250 MG/50 ML BAG IV SCH (09:49)
[2025-08-07] MEDS: Ciprofloxacin 200mg IV 200 MG/100 ML IV.SOLN. IV SCH (09:49)
[2025-08-07] MEDS: METRONIDAZOLE 500mg IVPB 250 MG/50 ML BAG IV SCH (16:49)
--- NOTE | 2025-08-07 18:55 | RAD REPORT ---
EXAMINATION: CT ABDOMEN AND PELVIS WITHOUT CONTRAST CLINICAL INDICATION: Abdominal pain TECHNIQUE: CT abdomen and pelvis was performed, as per department protocol. IV contrast and oral was not administered.Axial, sagittal and coronal reconstructions were obtained. One or more of the following dose reduction techniques were used: Automated exposure control, adjustment of the mA and/o r kV according to the patient size, and/or iterative reconstruction. Unless otherwise specified, incidental findings do not require dedicated imaging follow-up. [id number].. Lack of IV contrast limits e valuation of solid organs and vessels. Oral contrast was given. COMPARISON: August 06, 2025 FINDINGS: The liver, spleen, pancreas, adrenals and right kidney. Small nonobstructing left renal calculus. An 8 mm mass mass extends off the lower pole left kidney unchanged likely benign. Small duodenal diverticulum. Cholecystectomy No evidence of diverticulitis Dilatation of the cecum has diminished. It measures 7.8 cm. It has a U shape. Contrast enters the mor e distal colon. Mild anterior subluxation L5 on S1. Spondylolysis L5 [id number] bilateral hernias containing fat.. Mild to moderate prostatic enlargement IMPRESSION: The dilatation of the cecum has diminished currently measuring 7.8 cm. The cecum has the appearance o f a volvulus. A complete obstruction is not currently present as contrast enters the more distal colon. Continued close follow-up recommended.
[2025-08-07] MEDS: AMITRIPTYLINE 50 MG TAB PO SCH (20:54)
[2025-08-07] MEDS: ATORVASTATIN 40 MG TAB PO SCH (20:55)
[2025-08-07] MEDS ORDERED: HOME MED 1 EA UNK (Amitriptyline Hcl [Amitriptyline Hcl] 100 MG Tablet) PO SCH (21:00)
[2025-08-08 05:15] LABS: Absolute Lymphocytes (CBC) 1.0 K/uL (0.7-4.9); Hematocrit 41.9 % (39.6-49.0); Hemoglobin 14.1 g/dL (13.6-17.9); MCH 29.2 pg (27.0-35.0); MCHC 33.7 g/dL (32.0-36.0); MCV 86.5 fL (80-100); MPV 7.1 fL (7.6-11.3); Nucleated RBC Absolute Count 0.0 (0-0); Nucleated Red Blood Cells % 0.0 % (0-0); RBC Red Blood Cell Count 4.84 M/uL (4.33-5.43); White Blood Count 3.60 thou/uL (4.3-10.9)
[2025-08-08 05:32] LABS: ALT/SGPT 32.0 U/L (16-61); AST/SGOT 25.0 U/L (15-37); Albumin 3.1 g/dL (3.4-5.0); Albumin/Globulin Ratio 1.0 (1.1-1.8); Alkaline Phosphatase 49.0 U/L (45-117); Anion Gap 10.5 mEq/L (5.0-15.0); BUN Blood Urea Nitrogen 10.0 mg/dL (7-18); Globulin 3.1 g/dL (2.3-3.5); Glucose Level 114.0 mg/dL (74-106); Magnesium 2.2 mg/dL (1.6-2.4); Potassium 4.5 mEq/L (3.5-5.1)
[2025-08-08] MEDS: PANTOPRAZOLE 40MG TABLET PO SCH (07:30)
[2025-08-08] MEDS: LOSARTAN POTASSIUM 50 MG TABLET PO SCH (08:28)
[2025-08-08] MEDS: ASPIRIN 81 MG CHEWABLE TABLET PO SCH (08:28)
[2025-08-08] MEDS: AMLODIPINE 2.5 MG TAB PO SCH (08:28)
[2025-08-08] MEDS: COENZYME Q10- 100 MG CAP PO SCH (08:28)
[2025-08-08] MEDS ORDERED: UBIQUINOL 100 MG PO SCH (09:00)
[2025-08-08] MEDS ORDERED: LOSARTAN POTASSIUM 50 MG TABLET PO SCH (09:00)
[2025-08-08] MEDS ORDERED: HOME MED 1 EA UNK (Losartan Potassium [Losartan Potassium] 100 MG Tablet) PO SCH (09:00)
[2025-08-08 09:21] VITALS: O2SAT 97
[2025-08-08 12:41] VITALS: BP 155/68; TEMP 98.3
== END 2025-08-08 14:26 | disposition home or self-care (01) | DRG 393 ==
LOC: ER 16:26 → ERHOLD 08-07 01:23 → UNDOADMIN 08-07 02:31 → ERHOLD 08-07 07:55 → 4TH 08-07 07:55
PROVIDERS: ADMIT Hospitalist; ATTEND Hospitalist
DX: K46.9 Unspecified abdominal hernia without obstruction or gangrene (principal); K56.2 Volvulus; I10 Essential (primary) hypertension; E78.00 Pure hypercholesterolemia, unspecified; I25.2 Old myocardial infarction; Z95.1 Presence of aortocoronary bypass graft; Z90.49 Acquired absence of other specified parts of digestive tract; Z88.2 Allergy status to sulfonamides; Z88.8 Allergy status to other drugs, medicaments and biological substances; Z79.82 Long term (current) use of aspirin; Z79.899 Other long term (current) drug therapy; Z87.891 Personal history of nicotine dependence
CPT/HCPCS: 36415; 74176; 74177; 80053; 82105; 82378; 83605; 83690; 83735; 85025; 96361; 96374; 96375; 99285; J0744; J2405; J7030; J7799; Q9967